=== PATIENT | male | born 2000 | race Hispanic/Latino ===

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

== ENCOUNTER 2021-02-10 17:17 | Emergency (ER) | payer BC, MEDICAID ==
[2021-02-10] MEDS ORDERED: Lidocaine 1% (PF) 30 ML VIAL ONE (18:12)
[2021-02-10] MEDS ORDERED: Bacitracin 1 PK ONE (18:12)
== END 2021-02-10 18:32 | disposition home or self-care (01) ==
LOC: NAV ERS 17:17
DX: S01.81XA Laceration without foreign body of other part of head, initial encounter (principal); W45.0XXA Nail entering through skin, initial encounter
CPT/HCPCS: 12011; J2001

== ENCOUNTER 2021-02-17 16:50 | Emergency (ER) | payer BC | END 2021-02-17 17:50 | disposition home or self-care (01) | LOC: NAV ERS 16:50 | DX: S01.81XD Laceration without foreign body of other part of head, subsequent encounter (principal) ==